=== PATIENT | female | born 1970 | race American Indian/Alaskan Native ===

== ENCOUNTER 2020-09-26 08:06 | Day surgery (SDC) | payer OTHER ==
[2020-09-26] MEDS ORDERED: SODIUM CHLORIDE 0.9% 1000 ML 1,000 ML ONE (08:23)
--- NOTE | 2020-09-26 09:25 | Anesthesia Consultation ---
Anesthesia Consult and Med Hx Date of service: 09/26/20 - Airway Anesthetic Teeth Evaluation: Good ROM Head & Neck: Adequate Mental/Hyoid Distance: Adequate Mallampati Class: Class II Intubation Access Assessment: Probably Good - Pre-Operative Health Status ASA Pre-Surgery Classification: ASA2 Proposed Anesthetic Plan: MAC - Pulmonary Hx Smoking: Yes (current smoker) - Gastrointestinal Hx Gastroesophageal Reflux Disease: Yes
--- NOTE | 2020-09-26 09:25 | Anesthesia Day of Surgery ---
Anesthesia Day of Surgery - Day of Surgery Patient Examined: Yes Patient H&P Reviewed: Yes Patient is NPO: Yes
[2020-09-26] MEDS ORDERED: propofoL 200 MG/20 ML VIAL IV ONE ×2 (09:26→09:36)
[2020-09-26] MEDS ORDERED: SODIUM CHLORIDE 0.9% 1000 ML 1,000 ML IV SCH (09:45)
--- NOTE | 2020-09-26 09:59 | Procedure Note ---
Date of procedure: 09/26/20 Pre-op diagnosis: Changes in bowel Habit and colon Polyp Screening Post-op diagnosis: other (R/O Microscopic Colitis/ R/O Ileitis/ Minor,Internal Hemorrhoid/ No colon Polyps or Diverticular Disease noted) Procedure: Colonoscopy with Biopsy Anesthesia: MAC Surgeon: JEAN ALVAREZ Estimated blood loss: minimal Pathology: list Specimen disposition: to lab Condition: stable Disposition: same day (Avoid aspirin and NSAID for 5 days; otherwise continue with home medication. Encourage patient to take OTC Probiotic. Follow up in 1 to 2 weeks ([phone]).)
--- NOTE | 2020-09-26 10:06 | Operative Report ---
PROCEDURE: Colonoscopy with biopsy. INDICATIONS: This is a 50-year-old female who had noticed some changes in bowel habits. Colonoscopy was also done because of her age as part of colon polyp screening. The patient also stated that she was going to have possibly hysterectomy done and it was suggested by her lamp developer that she have a colonoscopy done prior to that surgical intervention. DESCRIPTION OF PROCEDURE: The procedure was done after getting informed consent with MAC anesthesia. Initial rectal exam was unremarkable. Instrument was passed through the rectum onto the cecum, which was identified by the ileocecal valve and the appendiceal orifice. Visualization was fair to good. The terminal ileum was intubated, showed normal mucosa. Biopsy was done to rule out for possible ileitis. Cecum, ascending colon, transverse colon, descending colon, and sigmoid likewise showed normal mucosa. There was no evidence of any polyps, colitis or diverticular disease and random biopsies were done to rule out for possible microscopic colitis. The rectum showed some minor internal hemorrhoid on the retroverted view. ASSESSMENT: Changes in bowel habit, colon polyp screening, no colon polyps noted, no diverticula, rule out microscopic colitis, rule out ileitis, minor internal hemorrhoids. PLAN: To continue treatment with her present treatment, avoid aspirin and aspirin-related products for the next few days. Encouraged the patient to take [id number] probiotics and follow up in the office in 1-2 weeks' time. The procedure was done in the GI lab with assistance of the GI lab team, which included CHARLENE Hratley as well as flaca Wu and with the assistance of anesthesia. [facility]# [id number] NORMA/ARRON
[2020-09-26 14:11] VITALS: BP 183/98
--- NOTE | 2020-09-26 18:36 | Post Anesthesia Evaluation ---
- Post Anesthesia Evaluation Patient Participated: Yes Airway Patent: Yes Stable Respiratory Function: Yes Nausea/Vomiting: No Temp > 96.8F: Yes Pain Manageable: Yes Adequeate Hydration: Yes Anesthesia Complications: No Block Receding Appropriately: Not Applicable Patient on Ventilator: No
== END 2020-09-26 08:07 | disposition home or self-care (01) ==
LOC: GIO 08:06
DX: R19.4 Change in bowel habit (principal); K64.8 Other hemorrhoids; K63.89 Other specified diseases of intestine; K21.9 Gastro-esophageal reflux disease without esophagitis; F17.210 Nicotine dependence, cigarettes, uncomplicated; I10 Essential (primary) hypertension; Z98.890 Other specified postprocedural states
CPT/HCPCS: 45380; 88305; J2704; J7030